=== PATIENT | female | born 1995 | race American Indian/Alaskan Native ===

== ENCOUNTER 2022-05-06 12:37 | Emergency (ER) | payer SELFPAY ==
[2022-05-06 13:13] VITALS: BP 102/59
[2022-05-06 13:46] LABS: Basophils % (Auto) 0.8 % (0.0-1.8); Eosinophils % (Auto) 0.3 % (0.0-4.3); Hematocrit 42.1 % (30.3-42.9); Hemoglobin 13.8 gm/dl (10.1-14.3); Lymphocytes # (Auto) 1.7 K/mm3 (1.2-5.4); Lymphocytes % (Auto) 47.2 % (13.4-35.0); Mean Corpuscular HGB Conc 33 % (30-34); Mean Corpuscular Volume 92 fl (79-97); Monocytes # (Auto) 0.3 K/mm3 (0.0-0.8); Monocytes % (Auto) 8.2 % (0.0-7.3); Platelet Count 192 K/mm3 (140-440); Red Blood Count 4.56 M/mm3 (3.65-5.03); Red Cell Distribution Width 13.4 % (13.2-15.2)
[2022-05-06 14:03] LABS: Alanine Aminotransferase 10 units/L (7-56); Albumin 4.5 g/dL (3.9-5); Blood Urea Nitrogen 6 mg/dL (7-17); Calcium 9.3 mg/dL (8.4-10.2); Hemolysis Index 41
[2022-05-06 14:24] LABS: BUN/Creatinine Ratio 10
== END 2022-05-06 14:20 | disposition left against medical advice (07) ==
LOC: ED 12:37
DX: O20.8 Other hemorrhage in early pregnancy (principal); Z3A.08 8 weeks gestation of pregnancy; Z53.21 Procedure and treatment not carried out due to patient leaving prior to being seen by health care provider
CPT/HCPCS: 36415; 80053; 84702; 85025

== ENCOUNTER 2022-05-07 10:31 | Emergency (ER) | payer MEDICAID ==
[2022-05-07 13:48] LABS: Color,Urine Yellow (Yellow)
[2022-05-07 13:51] LABS: Mucus,Urine 3+ /HPF
[2022-05-07 14:29] LABS: Hematocrit 41.3 % (30.3-42.9); Hemoglobin 13.7 gm/dl (10.1-14.3); Mean Corpuscular HGB Conc 33 % (30-34); Mean Corpuscular Volume 93 fl (79-97); Platelet Count 187 K/mm3 (140-440); Red Blood Count 4.44 M/mm3 (3.65-5.03); Red Cell Distribution Width 13.2 % (13.2-15.2)
--- NOTE | 2022-05-07 14:38 | Emergency Department Report ---
ED HPI - General Chief complaint: Vaginal Bleeding Stated complaint: 8 WEEKS PREG SPOTTING Source: patient Mode of arrival: Ambulatory Limitations: No Limitations - History of Present Illness Initial comments: 26-year-old female presents the ED complaining of vaginal spotting. Patient states she is 1 Para 0 A 0. Patient states that she noticed some vaginal bleeding x1 day ago. Denies any abdominal pain at present time. She states that she is current follow by [employer] development engineer. Patient states that she is 8 weeks . She denies any fever chills or nausea or vomiting at present time. She is alert and oriented x3. No acute distress noted. No ill a ppearance noted. MD Complaint: vaginal bleeding Vaginal bleeding: light :: Yes Number of weeks : 8 Pre- care: followed by OB - Related Data Allergies Allergy/AdvReac Type Severity Reaction Status Date / Time No Known Allergies Allergy Verified 05/07/22 10:48 ED Review of Systems ROS: Stated complaint: 8 WEEKS PREG SPOTTING Other details as noted in HPI Constitutional: denies: chills, fever Eyes: denies: eye pain, eye discharge, vision change ENT: denies: ear pain, throat pain Respiratory: denies: cough, shortness of breath, wheezing Cardiovascular: denies: chest pain, palpitations Endocrine: no symptoms reported Gastrointestinal: denies: abdominal pain, nausea, diarrhea Genitourinary: denies: urgency, dysuria, discharge Musculoskeletal: denies: back pain, joint swelling, arthralgia Skin: denies: rash, lesions Neurological: denies: headache, weakness, paresthesias Psychiatric: denies: anxiety, depression Hematological/Lymphatic: denies: easy bleeding, easy bruising ED Past Medical Hx - Past Medical History Previous Medical History?: No - Surgical History Past Surgical History?: No ED Physical Exam - General Limitations: No Limitations General appearance: alert, in no apparent distress - Head Head exam: Present: atraumatic, normocephalic - Eye Eye exam: Present: normal appearance - ENT ENT exam: Present: mucous membranes moist - Neck Neck exam: Present: normal inspection - Respiratory Respiratory exam: Present: normal lung sounds bilaterally. Absent: respiratory distress - Cardiovascular Cardiovascular Exam: Present: regular rate, normal rhythm. Absent: systolic murmur, diastolic murmur, rubs, gallop - GI/Abdominal GI/Abdominal exam: Present: soft, normal bowel sounds - Extremities Exam Extremities exam: Present: normal inspection - Back Exam Back exam: Present: normal inspection - Neurological Exam Neurological exam: Present: alert, oriented X3 - Psychiatric Psychiatric exam: Present: normal affect, normal mood - Skin Skin exam: Present: warm, dry, intact, normal color. Absent: rash ED Course Vital Signs 05/07/22 05/07/22 10:51 15:38 Temperature 98.9 F 97.4 F L Pulse Rate 76 57 L Respiratory 20 16 Rate Blood Pressure 103/58 Blood Pressure 120/50 [Left] O2 Sat by Pulse 100 100 Oximetry ED Medical Decision Making - Lab Data Result diagrams: 05/07/22 14:11 05/07/22 14:11 - Radiology Data [facility] [address] [place] [address] Ultrasound Report Signed Patient: SHELLI WILHELM MR#: [id number] : 1995 Acct:[id number] Age/Sex: 26 / F ADM Date: 05/07/22 Loc: ED Attending Dr: Ordering Physician: KAR HASTINGS Date of Service: 05/07/22 Procedure(s): US OB <= 14 weeks fetus Accession Number(s): [id number] cc: KAR HASTINGS ULTRASOUND OBSTETRIC LIMITED INDICATION / CLINICAL INFORMATION: vaginal bleeding. - Clinical Gestational Age (GA) in weeks, days: 8 weeks 5 days TECHNIQUE: Transabdominal. COMPARISON: None available. FINDINGS: HEART RATE (beats per minute): 166 A small pole is demonstrated within an intrauterine gestational sac, gestational sac size correlating with a gestational age 7 weeks 1 day, crown-rump length correlating with gestational to 8 weeks 1 day. Yolk sac is demonstrated. The ovaries are not visualized or evaluated. A hypoechoic nodule is evident involving the posterior myometrium which measured 2.2 cm maximally. EDC by ultrasound is 4-4-23. IMPRESSION: 1. Single viable first trimester intrauterine gestation, average ultrasound determined gestational age 7 weeks 5 days, additional data provided above. Continued obstetric/sonographic follow-up recommended. 2. Hypoechoic posterior myometrial nodule most likely on the basis of a uterine fibroid. Continued attention at follow-up recommended. Signer Name: Radha Aguilar MD Signed: 05/07/2022 5:23 PM Workstation Name: [email or web address] Transcribed By: Dictated By: Iban AGUILAR Electronically Authenticated By: Iban AGUILAR Signed Date/Time: 05/07/221722 DD/ 19 TD/TT: - Medical Decision Making 26-year-old female presents the ED complaining of vaginal spotting. Patient states she is 1 Para 0 A 0. Patient states that she noticed some vaginal bleeding x1 day ago. Denies any abdominal pain at present time. She states that she is current follow by [employer]. Patient states that she is 8 weeks . She denies any fever chills or nausea or vomiting at present time. She is alert and oriented x3. No acute distress noted. No ill appearance noted. Physical examination is unremarkable Rechecked the patient is resting quietly , comfortable and feeling better. I discussed the results of diagnostic study, my clinical impression and the plan for further treatment with the patient. Patient agrees with plan and discharge at this present time. All question addressed. I have given the patient instruction regarding a diagnosis ,expectation ,follow- up and return precaution. I explained to the patient that emergent condition may arise and to return to the ED for new worsen and any new persisting condition. I have explained the importance of following up with the primary care physician or referral physician listed below has instructed. The patient verbalized understanding of discharge instruction. Critical care attestation.: If time is entered above; I have spent that time in minutes in the direct care of this critically ill patient, excluding procedure time. ED Disposition Clinical Impression: Vaginal bleeding in patient after first trimester Disposition: 01 HOME / SELF CARE / HOMELESS Is pt being admited?: No Does the pt Need Aspirin: No Condition: Stable Instructions: Uterine Fibroids, Vaginal Bleeding During , First Trimester Additional Instructions: Follow-up with your [employer] Return to ED for any worsening symptom Forms: Work/School Release Form(ED)
[2022-05-07 14:49] LABS: Alanine Aminotransferase 10 units/L (7-56); Albumin 4.5 g/dL (3.9-5); Blood Urea Nitrogen 7 mg/dL (7-17); Calcium 9.2 mg/dL (8.4-10.2); Hemolysis Index 13
[2022-05-07 14:59] LABS: BUN/Creatinine Ratio 12
--- NOTE | 2022-05-07 17:27 | Ultrasound Report ---
ULTRASOUND OBSTETRIC LIMITED INDICATION / CLINICAL INFORMATION: vaginal bleeding. - Clinical Gestational Age (GA) in weeks, days: 8 weeks 5 days TECHNIQUE: Transabdominal. COMPARISON: None available. FINDINGS: HEART RATE (beats per minute): 166 A small pole is demonstrated within an intrauterine gestational sac, gestational sac size corre lating with a gestational age 7 weeks 1 day, crown-rump length correlating with gestational to 8 week s 1 day. Yolk sac is demonstrated. The ovaries are not visualized or evaluated. A hypoechoic nodule is evident involving the posterior m yometrium which measured 2.2 cm maximally. EDC by ultrasound is 4-4-23. IMPRESSION: 1. Single viable first trimester intrauterine gestation, average ultrasound determined gestational ag e 7 weeks 5 days, additional data provided above. Continued obstetric/sonographic follow-up recommend ed. 2. Hypoechoic posterior myometrial nodule most likely on the basis of a uterine fibroid. Continued at tention at follow-up recommended. Signer Name: Radha Garcia MD Signed: 05/07/2022 5:23 PM Workstation Name: [email or web address]
[2022-05-07 18:17] VITALS: BP 94/76
== END 2022-05-07 17:47 | disposition home or self-care (01) ==
LOC: ED 10:31
DX: O46.91 Antepartum hemorrhage, unspecified, first trimester (principal); Z3A.08 8 weeks gestation of pregnancy
CPT/HCPCS: 36415; 76801; 80053; 81001; 84702; 85027; 86850; 86900; 86901; 99284